=== PATIENT | female | born 2000 | race American Indian/Alaskan Native ===

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

== ENCOUNTER 2021-11-27 16:14 | Emergency (ER) | payer OTHER ==
[2021-11-27] MEDS ORDERED: traMADol 50 MG TAB PO ONE (21:32)
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
[2021-11-28 01:25] VITALS: BP 119/78
== END 2021-11-28 01:25 | disposition home or self-care (01) ==
LOC: ED 16:14
DX: S76.012A Strain of muscle, fascia and tendon of left hip, initial encounter (principal); S86.912A Strain of unspecified muscle(s) and tendon(s) at lower leg level, left leg, initial encounter; J45.909 Unspecified asthma, uncomplicated; X58.XXXA Exposure to other specified factors, initial encounter; Y93.89 Activity, other specified; Y92.89 Other specified places as the place of occurrence of the external cause; Y99.8 Other external cause status; V89.2XXA Person injured in unspecified motor-vehicle accident, traffic, initial encounter
CPT/HCPCS: 99283